=== PATIENT | female | born 1995 | race African-American/Black ===

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

== ENCOUNTER 2017-03-07 08:05 | Emergency (ER) | payer OTHER ==
[2017-03-07] MEDS ORDERED: PRENTAB55 PO (08:15)
[2017-03-07] MEDS ORDERED: MORPHINE 4 MG/ML 1ML SYRINGE IV ONE (08:45)
[2017-03-07] MEDS ORDERED: NS 1,000 ML IV ONE (08:45)
[2017-03-07 09:06] LABS: MICROSCOPIC INDICATED? MAN YES (NO)
[2017-03-07 09:16] LABS: BASO % 0.2 % (0.0-1.0); EOS # 0.2 K/mm3 (0.0-0.50); EOS % 1.4 % (0.0-3.0); LARGE UNSTAINED CELL # 0.1 K/mm3 (0.0-0.4); LARGE UNSTAINED CELL % 1.1 % (0.0-4.0); LYMPH # 1.4 K/mm3 (1.5-6.5); LYMPH % 12.6 % (24.0-44.0); MEAN CORPUSCULAR HEMOGLOBIN 28.9 pg (27.0-33.0); MEAN CORPUSCULAR HGB CONC 33.4 g/dl (32.0-36.5); MEAN CORPUSCULAR VOLUME 86.7 fl (80.0-96.0); MONO # 0.5 K/mm3 (0.0-0.8); MONO % 4.3 % (0.0-5.0); NEUTROPHILS # 8.7 K/mm3 (1.8-7.7); NEUTROPHILS % 80.5 % (36.0-66.0); PLATELET COUNT, AUTOMATED 202 k/mm3 (150-450); RED CELL DISTRIBUTION WIDTH 15.3 % (11.5-14.5); WHITE BLOOD COUNT 10.8 K/mm3 (4.0-10.0)
[2017-03-07 09:32] LABS: ALBUMIN 3.3 GM/DL (3.2-5.2); ALBUMIN/GLOBULIN RATIO 0.72 (1.00-1.93); ALKALINE PHOSPHATASE 64 U/L (45-117); ALT/SGPT 48 U/L (12-78); ANION GAP 6 MEQ/L (8-16); AST/SGOT 30 U/L (15-37); BILIRUBIN,DIRECT 0.1 MG/DL (0.0-0.2); BILIRUBIN,TOTAL 0.4 MG/DL (0.2-1.0); BLOOD UREA NITROGEN 7 MG/DL (7-18); CALCIUM LEVEL 8.5 MG/DL (8.5-10.1); CARBON DIOXIDE LEVEL 27 MEQ/L (21-32); CHLORIDE LEVEL 105 MEQ/L (98-107); CREATININE FOR GFR 0.64 MG/DL (0.55-1.02); GLUCOSE, FASTING 78 MG/DL (70-105); POTASSIUM SERUM 3.8 MEQ/L (3.5-5.1); SODIUM LEVEL 138 MEQ/L (136-145); TOTAL PROTEIN 7.9 GM/DL (6.4-8.2)
[2017-03-07 09:48] LABS: RBC, URINE 0-1 /hpf (0-3); SQUAMOUS EPITHELIAL CELL URINE SMALL AMOUNT /hpf (SMALL AMT); TRANSITIONAL EPI CELLS, URINE SMALL AMOUNT /hpf
[2017-03-07 09:49] LABS: BACTERIA, URINE NONE SEEN; HYALINE CAST, URINE NONE SEEN /lpf (0-1); MICROSCOPIC EXAM PERFORMED
--- NOTE | 2017-03-07 10:22 | REP ---
Obstetric ultrasound for anatomy: There is a single intrauterine gestation in a vertex presentation. There is motion and cardiac activity. The heart rate is 153 beats per minute. The placenta is posterior. There is no placenta previa or abruptio. Placenta is grade zero maturity. The amniotic fluid volume subjectively is normal. The cervix measures 3.5 cm with transvaginal ultrasound and with transabdominal ultrasound. The maternal adnexa and cul-de-sac are unremarkable. The gestational age by the ultrasound today is 20 weeks 0 days with an MARTINE of 07/25/2017. The gestational age by LMP is 19 weeks 5 days. The weight is 322 grams (0 pounds, 11 ounces). This is the 55th percentile for 19 weeks 5 days. The following anatomic structures are identified and are unremarkable: Intracranial lateral ventricles, choroid plexus, cerebellum, cisterna magna, cavum septum pellucidum, lungs, four-chamber heart, cardiac right ventricular outflow tract, diaphragm, stomach, cord insertion, three-vessel cord, kidneys, bladder, spine and upper lower extremities. Suboptimally demonstrated because of position is the facial profile and cardiac left ventricular outflow tract. A followup study dedicated to these structures might be considered. Otherwise, there are no anomalies Signed by Neel Elizalde MD 03/07/2017 10:13 A
[2017-03-07 11:21] VITALS: BP 123/59
== END 2017-03-07 11:25 | disposition home or self-care (01) ==
LOC: M ED 08:05
DX: O26.892 Other specified pregnancy related conditions, second trimester (principal); Z3A.19 19 weeks gestation of pregnancy; Z79.899 Other long term (current) drug therapy

== ENCOUNTER 2017-06-26 11:23 | Outpatient (CLI) | payer OTHER ==
[~2017-06-26] VITALS: Ht 160 cm; Wt 88.0 kg
[~2017-06-26 11:23] MED LIST: PRENTAB55 PO
[2017-06-26 11:44] VITALS: BP 126/77
[2017-06-26 12:33] VITALS: BP 128/70
--- NOTE | 2017-06-26 18:36 | HPE ---
DATE OF ADMISSION: 06/26/2017 This lady is a 22-year-old 2, para 0, abortio 1, last menstrual period (LMP) 10/05/2016, estimated date of confinement (EDC) 07/27/2017 at 35 and 4 weeks of gestation. Said she had vaginal bleeding time one episode in the toilet. She was not wearing a pad. Was not in any pain and did not present with any discharge. Her risk factors: She is a teen . She had an echogenic focus on ultrasound and group B streptococcus (GBS) positive in the urine. PAST HISTORY: 03/08/2017 seven weeks spontaneous . LABORATORIES: [facility]+, HIV negative, hepatitis negative, rapid plasma reagin (RPR) negative, rubella immune, varicella antibodies. Urine showed GBS positive. Gonorrhea and chlamydia are negative. Glucose was not available. On examination, she is in no acute distress. Symphysis fundus height is appropriate for 35 weeks. Nontender. Four quadrant bowel sounds are noted. Category one strip with accelerations, no decelerations, no contractions, moderate variability 6-25 beats per minute. She is normocephalic, atraumatic. Neck: Full range of motion. Pupils equal and reactive to light. Distal pulses are symmetric. No evidence of deep venous thrombosis (DVT), pulmonary embolism (PE), or superficial phlebitis. Lungs are clear bilaterally to bases. No wheezes or rhonchi. No costovertebral angle (CVA) tenderness. On sterile speculum examination, cervix is posterior, closed. Scant pink was noted. No evidence of loss of fluid or bleeding, and it was a nontender cervix and uterus. She has no rashes, lesions, or pruritus. No arthralgia or myalgia. No complaints of cough, wheezes, shortness of breath, or dyspnea on exertion. No chest pain. Not bleeding. Neuro complete. No incontinency, urgency, or frequency. No nausea, vomiting, diarrhea, or constipation. Her urine was 1.020, pH 6, and trace for glucose. Blood pressure 128/70, respirations 18, pulse 92, and temperature is 99.1. PAST MEDICAL AND SURGICAL HISTORY: Unremarkable. She does not smoke, drink, abuse drugs. 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 She has good support system outside of the [employer]. In summary, we have a patient who presented with questionable bleeding. Did not demonstrate any of that. Category one strip. Precautions were given. No sex was emphasized. Her partner is deployed. She is to keep her appointment on 07/02/2017, and she was discharged undelivered.
== END 2017-06-26 12:49 | disposition home or self-care (01) ==
LOC: M LDO 11:23
PROVIDERS: ATTEND Obstetrics & Gynecology
DX: O26.853 Spotting complicating pregnancy, third trimester (principal); Z87.59 Personal history of other complications of pregnancy, childbirth and the puerperium; O99.820 Streptococcus B carrier state complicating pregnancy; Z3A.35 35 weeks gestation of pregnancy

== ENCOUNTER 2017-07-22 16:46 | Outpatient (CLI) | payer OTHER | END 2017-07-22 17:40 | disposition home or self-care (01) | LOC: M LDO 16:46 | DX: O47.1 False labor at or after 37 completed weeks of gestation (principal); Z3A.39 39 weeks gestation of pregnancy; O99.613 Diseases of the digestive system complicating pregnancy, third trimester; R11.2 Nausea with vomiting, unspecified; R19.7 Diarrhea, unspecified; R50.9 Fever, unspecified | CPT/HCPCS: 59025 ==

== ENCOUNTER 2017-07-31 05:26 | Inpatient (IN) | payer OTHER ==
[2017-07-31] MEDS: LR 1,000 ML IV ×4 (06:15→15:36)
[2017-07-31] MEDS: PENICILLIN G POTASSIUM IV 5 MU in D5W MINI-BAG PLUS 100 ML IV (06:15)
[2017-07-31 06:50] LABS: HEMOGLOBIN 13.3 g/dl (12.0-16.0); MEAN CORPUSCULAR HEMOGLOBIN 28.4 pg (27.0-33.0); MEAN CORPUSCULAR HGB CONC 33.3 g/dl (32.0-36.5); MEAN CORPUSCULAR VOLUME 85.3 fl (80.0-96.0); PLATELET COUNT, AUTOMATED 195 10^3/uL (150-450); RED BLOOD COUNT 4.69 10^6/uL (4.00-5.40); RED CELL DISTRIBUTION WIDTH 14.9 % (11.5-14.5); WHITE BLOOD COUNT 15.7 10^3/uL (4.0-10.0)
[2017-07-31] MEDS: BUTORPHANOL 2 MG/ML INJ (J0595) IV (07:03)
[2017-07-31] MEDS: PROMETHAZINE INJ 25 MG/ML VIAL (J2550) IV (07:04)
[2017-07-31 07:20] LABS: ALT/SGPT 24 U/L (12-78); AST/SGOT 21 U/L (7-37); BILIRUBIN,TOTAL 0.4 MG/DL (0.2-1.0); CREATININE FOR GFR 0.65 MG/DL (0.55-1.02); LDH LACTATE DEHYDROGENASE 187 U/L (84-246); URIC ACID 3.8 MG/DL (2.6-6.0)
[2017-07-31 07:58] LABS: TOTAL PROTEIN,RANDOM URINE 16.7 MG/DL (0.0-12.0)
[2017-07-31 09:02] LABS: AMPHETAMINES URINE REFLEX NEGATIVE (NEGATIVE); BARBITURATES URINE REFLEX NEGATIVE (NEGATIVE); BENZODIAZEPINES URINE REFLEX NEGATIVE (NEGATIVE); CANNABINOIDS URINE REFLEX NEGATIVE (NEGATIVE); COCAINE METABOLITE URINE REFLE NEGATIVE (NEGATIVE); METHADONE URINE REFLEX NEGATIVE (NEGATIVE); OPIATES URINE REFLEX NEGATIVE (NEGATIVE); PHENCYCLIDINE URINE REFLEX NEGATIVE (NEGATIVE)
[2017-07-31] MEDS ORDERED: FENTANYL 2MCG/ML ROPIVACAINE 0.2% IN 0.9% NACL 200ML IVBAG As Ordered (09:09)
[2017-07-31] MEDS: PENICILLIN G POTASSIUM IV 2.5 MU in APPROPRIATE DILUENT 1 EA IV ×2 (11:05→15:06)
[2017-07-31] MEDS: LACTATED RINGER'S 1000 ML IV (11:08)
[2017-07-31] MEDS ORDERED: FENTANYL/ROPIVACAINE/NACL BAG 200 ML EPIDURAL (11:15)
[2017-07-31] MEDS ORDERED: EPIDURAL COMMENT XX (11:15)
[2017-07-31] MEDS ORDERED: ePHEDrine SULFATE 25 MG/5 ML(5MG/ML) SYRINGE IV (11:15)
[2017-07-31] MEDS ORDERED: ONDANSETRON 4MG/2ML VIAL (J2405) IV ×2 (11:15→19:30)
[2017-07-31] MEDS ORDERED: NALOXONE INJ 0.4 MG/1 ML VIAL (J2310) IV (11:15)
[2017-07-31] MEDS ORDERED: REFRIGERATOR IV KEYS XX (11:15)
[2017-07-31] MEDS ORDERED: EPIDURAL/PCA KEYS XX (11:15)
[2017-07-31] MEDS ORDERED: diphenhydrAMINE INJ 50MG/ML VIAL (J1200) IV (11:15)
[2017-07-31] MEDS ORDERED: OXYTOCIN 30 UNITS IN 0.9% NaCl 500ML IV BAG (J2590) As Ordered (14:18)
[2017-07-31] MEDS ORDERED: BICITRA 30ML SOLN UDC As Ordered (15:16)
[2017-07-31] MEDS ORDERED: ceFAZolin 2 GM/D5W 50 ML IV BAG (J0690 PER 500MG) As Ordered (15:16)
[2017-07-31] MEDS: OXYTOCIN DRIP 30 UNITS in APPROPRIATE DILUENT 1 EA IV (19:17)
[2017-07-31 19:25] LABS: CORD GAS ABE V -9.4; CORD GAS HCO3 V 16.8 MEQ/L; CORD GAS O2 SAT V 73.8 %; CORD GAS PH V 7.264 UNITS; CORD GAS PO2 V 35.2 mmHg; CORD GAS SBC V 16.6 MEQ/L
[2017-07-31] MEDS ORDERED: PROMETHAZINE 25 MG TAB PO (19:30)
[2017-07-31] MEDS ORDERED: RHOGAM 300 MCG (1500 IU) INJ (J2790) IM (19:30)
[2017-07-31] MEDS ORDERED: MEASLES,MUMPS,RUBELLA VACCINE INJ (MMR-II) (90707) SC (19:30)
[2017-07-31] MEDS ORDERED: DIBUCAINE 1% OINTMENT 30GM TOP (19:30)
[2017-07-31] MEDS ORDERED: METHYLERGONOVINE MALEATE 0.2 MG/ML VIAL (J2210) IM (19:30)
[2017-07-31 19:36] LABS: CORD GAS ABE A -9.2; CORD GAS HCO3 A 16.8 MEQ/L; CORD GAS O2 SAT A 92.8 %; CORD GAS PCO2 A 37.1 mmHg; CORD GAS PH A 7.275 UNITS; CORD GAS PO2 A 56.8 mmHg; CORD GAS SBC A 17.2 MEQ/L
[2017-07-31] MEDS: DOCUSATE SODIUM 100 MG CAP PO (22:36)
[2017-07-31] MEDS: IBUPROFEN 800 MG TAB PO (22:37)
[2017-08-01] MEDS: PRENATAL VITAMINS CHEWABLE TABLET PO (09:45)
[2017-08-01] MEDS: DOCUSATE SODIUM 100 MG CAP PO ×2 (09:45→20:48)
[2017-08-01] MEDS: IBUPROFEN 800 MG TAB PO ×2 (09:46→20:49)
[2017-08-01] MEDS: ACETAMINOPHEN 500 MG TAB PO (20:49)
[2017-08-02] MEDS: DOCUSATE SODIUM 100 MG CAP PO (08:37)
[2017-08-02] MEDS: PRENATAL VITAMINS CHEWABLE TABLET PO (08:37)
[2017-08-02] MEDS: IBUPROFEN 800 MG TAB PO (08:37)
[2017-08-02] MEDS: ACETAMINOPHEN 500 MG TAB PO (08:37)
== END 2017-08-02 16:00 | disposition home or self-care (01) | DRG 775 ==
LOC: M LDO 05:26 → M LDI 06:02 → M OBS 21:07
PROVIDERS: Obstetrics & Gynecology
PROC: 10E0XZZ Delivery of Products of Conception, External Approach (ICD-10-PCS; principal; 2017-07-31)
PROC: 0HQ9XZZ Repair Perineum Skin, External Approach (ICD-10-PCS; 2017-07-31)
DX: O48.0 Post-term pregnancy (principal); Z37.0 Single live birth; Z3A.40 40 weeks gestation of pregnancy; O99.820 Streptococcus B carrier state complicating pregnancy; O70.0 First degree perineal laceration during delivery